=== PATIENT | female | born 1930 | race Caucasian/White ===

== ENCOUNTER → 2017-04-22 13:50 | Outpatient (CLI) | payer MEDICARE, OTHER ==
[2014-02-08 08:09] VITALS: BMI 19.2
[~2017-04-22 13:50] MED LIST: AMBIEN10 MG PO; AMITRIPTYLINE H50 MG PO; COREG6.25 MG; PROCRIT/EP2000 UNITS SQ; SYNTHROID50 MCG PO
== END | disposition home or self-care (01) ==
LOC: D.RAD 13:50
DX: D50.9 Iron deficiency anemia, unspecified (principal); D63.8 Anemia in other chronic diseases classified elsewhere; D63.1 Anemia in chronic kidney disease; D64.9 Anemia, unspecified